=== PATIENT | male | born 1975 | race Caucasian/White ===

== ENCOUNTER 2018-02-02 06:20 | Day surgery (SDC) | payer BC ==
[~2018-02-02] VITALS: Ht 191.8 cm; Wt 152.3 kg
[2018-02-02] MEDS ORDERED: OMEP20TA93 PO (06:47)
[2018-02-02] MEDS ORDERED: LOSA100T PO (06:47)
[2018-02-02] MEDS ORDERED: LORA0.5T PO (06:47)
[2018-02-02 06:48] VITALS: BP 172/94; PULSE 85; RESP 20; TEMP 97.8; O2SAT 97
[2018-02-02] MEDS ORDERED: SODIUM CHLORIDE 0.9% 1000 ML IV SCH (07:00)
[2018-02-02] MEDS ORDERED: CEFAZOLIN INJ 2,000 MG in SODIUM CHLORIDE 0.9% INJ 100 ML IV SCH (07:30)
[2018-02-02] MEDS ORDERED: POVIDONE IODINE 5% (ANTISEPSIS KIT) 4 APPLICATIONS EACH NARE SCH (07:30)
[2018-02-02] MEDS ORDERED: VANCOMYCIN 1000 MG/NS 250 ML - implanted port/tunneled catheter IV SCH ×2 (07:30)
[2018-02-02] MEDS ORDERED: CHLORHEXIDINE GLUCONATE 2 % 1 PACK (2 CLOTHS) TOPICAL SCH (07:30)
[2018-02-02 07:33] LABS: PROTHROMBIN TIME - PATIENT 9.8 SEC (9.8-11.6)
[2018-02-02] MEDS ORDERED: MIDAZOLAM HCL 2 MG/2 ML VIAL ONE ×3 (07:50→08:21)
[2018-02-02] MEDS ORDERED: LIDOCAINE 1%/EPINEPHrine 1:100,000 SOLN 30 ML VIAL ONE (08:08)
--- NOTE | 2018-02-02 08:39 | PD.RAD ---
Post Procedure Progress Note Pre Procedure Diagnosis: (1) Esophageal cancer Post Procedure Diagnosis: (1) Esophageal cancer Procedure Date: Feb 02, 2018 Supervising Radiologist: Aung Fortune Proceduralist/Assist: RT Milagro(R) Anesthesia: Conscious Sedation Plan of Activity Patient to Unit: ROPU Patient Condition: Good See PACS Report for procedural detail/treatment Central Venous Access Device Procedure 1 Right Internal Jugular Infusaport Placement single lumen Aung Fortune MD Feb 02, 2018 08:39
[2018-02-02] MEDS ORDERED: SODIUM CHLORIDE 0.9% FLUSH 10 ML FLUSH IVF PRN (08:45)
[2018-02-02 08:50] VITALS: BP 147/77; PULSE 88; RESP 18; TEMP 97.8; O2SAT 95
[2018-02-02 09:05] VITALS: BP 157/87; PULSE 83; RESP 18; O2SAT 95
[2018-02-02 09:35] VITALS: BP 141/92; PULSE 86; RESP 18; O2SAT 94
[2018-02-02 10:05] VITALS: BP 143/77; PULSE 85; RESP 16; O2SAT 95
--- NOTE | 2018-02-02 11:19 | RADRPT ---
EXAM DATE/TIME: 02/02/2018 08:03 [facility] COMPARISON: No previous studies available for comparison. 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 Vancomycin within 2 hours of procedure, Ancef (or alternative) within 1 hour of procedure. DEVICE: 1. 8 [place]ese single lumen Power port PROCEDURE : 1. Continuous pulse oximetry and EKG monitoring. 2. Intravenous conscious sedation. 3. Ultrasound guidance for venous access. 4. Fluoroscopic guided implantable central venous port placement. The patient was placed supine. The neck was prepped in sterile fashion. Full sterile technique was u sed, including cap, mask, sterile gloves and gown, and a large sterile sheet. Hand hygiene and 2% ch lorhexidine Betadine was utilized per protocol for cutaneous antisepsis with appropriate dry time for site. Sterile gel and sterile probe cover were utilized for ultrasound guidance. The skin and sub cutaneous tissues were infiltrated with local anesthetic solution. Under direct ultrasound guidance, central venous access was accomplished in the targeted vessel. The ultrasound images depicting access guidance were stored and saved to PACS for permanent record. A s ubcutaneous pocket was created using blunt dissection. The port was introduced to the pocket. The c atheter tubing was fed through a subcutaneous tunnel to the venotomy site. The catheter tubing was c ut to a suitable length and then was introduced through a valved Peel-Away sheath and positioned with catheter tubing tip at the cavo-atrial junction level. The pocket incision was closed with subcutic ular Vicryl suture. Steri-Strips were applied. The port was flushed and locked with heparin solutio n per protocol. Sterile dressing was applied to the site. The patient tolerated the procedure well. Conscious sedation was performed with the prescribed dosages and duration as above in the presence of an independent trained radiology nurse to assist in the monitoring of the patient. EKG and oximetry remained stable throughout the procedure. The patient tolerated the procedure well and there were no complications. The patient was sent to post anesthesia recovery in stable condition. CONCLUSION: 1. Uncomplicated port placement Aung Fortune MD on February 02, 2018 at 11:16 Board Certified Radiologist. This report was verified electronically.
== END 2018-02-02 10:36 | disposition home or self-care (01) ==
LOC: HROP 06:20 → HRIP 06:24 → HROP 10:36
PROVIDERS: ATTEND Internal Medicine
DX: Z45.2 Encounter for adjustment and management of vascular access device (principal); C15.9 Malignant neoplasm of esophagus, unspecified; I10 Essential (primary) hypertension; K21.9 Gastro-esophageal reflux disease without esophagitis
CPT/HCPCS: 36561; 76937; 77001; 85610; 85730; 99152; 99153; C1788; J0690; J1642; J2250; J3010; J3370; J7030; J7050